=== PATIENT | male | born 1955 | race Caucasian/White ===

== ENCOUNTER 2017-07-25 02:44 | Emergency (ER) | payer OTHER ==
[~2017-07-25] VITALS: Ht 190.5 cm; Wt 92.9 kg
[2017-07-25 02:51] VITALS: Ht 190.5 cm; Wt 92.9 kg
--- NOTE | 2017-07-25 03:55 | ERD ---
ER Documentation Chief Complaint Chief Complaint anxious HPI The patient is a 61-year-old male, presenting to the ER because he felt anxious at the board and care. Denies dizziness, syncope, near syncope, neck pain, chest pain, abdominal pain, vomiting. He is a poor historian, smokes socially, denies drinking or using illicit drug Medical history: Anxiety ROS All systems reviewed and are negative except as per history of present illness. Physical Exam Vitals Vital Signs Date Time Temp Pulse Resp B/P Pulse Ox O2 Delivery O2 Flow Rate FiO2 07/25/17 06:00 58 21 140/73 96 Room Air 07/25/17 04:00 71 20 176/100 97 Room Air 07/25/17 02:51 98.2 58 20 175/79 96 Physical Exam Const: No acute distress. Head: Atraumatic. Eyes: Normal Conjunctiva. ENT: Normal External Ears, Nose and Mouth. Neck: Full range of motion. No meningismus. Resp: Clear to auscultation bilaterally. Cardio: Regular rate and rhythm. Abd: Soft, non distended, normal bowel sounds, non tender. Skin: No petechiae or rashes. Back: No midline or flank tenderness. Ext: No cyanosis, or edema. Neur: Awake and alert. No focal deficit Psych: Anxious. Result Diagram: 07/25/17 0410 07/25/17 0410 Results 24 hrs Laboratory Tests Test 07/25/17 04:10 07/25/17 04:17 White Blood Count 6.910^3/ul Red Blood Count 3.5510^6/ul Hemoglobin 10.4g/dl Hematocrit 32.1% Mean Corpuscular Volume 90.4fl Mean Corpuscular Hemoglobin 29.3pg Mean Corpuscular Hemoglobin Concent 32.4g/dl Red Cell Distribution Width 16.6% Platelet Count 45632^3/UL Mean Platelet Volume 10.3fl Neutrophils % 47.3% Lymphocytes % 33.7% Monocytes % 12.8% Eosinophils % 5.5% Basophils % 0.4% Nucleated Red Blood Cells % 0.0/100WBC Neutrophils # 3.310^3/ul Lymphocytes # 2.310^3/ul Monocytes # 0.910^3/ul Eosinophils # 0.410^3/ul Basophils # 0.010^3/ul Nucleated Red Blood Cells # 0.010^3/ul Prothrombin Time 14.2Sec Prothrombin Time Ratio 1.1 INR International Normalized Ratio 1.09 Activated Partial Thromboplast Time 31.5Sec Sodium Level 145mmol/L Potassium Level 4.3mmol/L Chloride Level 111mmol/L Carbon Dioxide Level 24mmol/L Anion Gap 14 Blood Urea Nitrogen 35mg/dl Creatinine 2.17mg/dl Glucose Level 69mg/dl Calcium Level 9.0mg/dl Bedside Glucose 82mg/dL Procedures/MDM MEDICAL MAKING DECISION: The patient is a 61-year-old male, presenting with acute anxiety, has gotten better in the ER The differential diagnoses considered include but are not limited to anxiety attack, panic attack, decompensated psychiatric illness Departure Diagnosis: Primary Impression: Anxiety Additional Impressions: Anemia Renal insufficiency Condition: Good Comments I discussed the findings with the patient. I advised the patient to follow-up with the primary physician in about 1-2 days for re-eval and refer to Nephrology , sooner if needed and return if any concern. Disclaimer: Inadvertent spelling and grammatical errors are likely due to EHR/ dictation software use and do not reflect on the overall quality of patient care. Also, please note that the electronic time recorded on this note does not necessarily reflect the actual time of the patient encounter. ALEJANDRO CLEANING MD Jul 25, 2017 03:55
[2017-07-25 04:22] LABS: WHITE BLOOD COUNT 6.9 10^3/ul (4.8-10.8)
[2017-07-25 04:23] LABS: BASOPHILS % 0.4 % (0.0-2.0); EOSINOPHILS # 0.4 10^3/ul (0.0-0.5); EOSINOPHILS % 5.5 % (0.0-7.0); HEMATOCRIT 32.1 % (42.0-52.0); HEMOGLOBIN 10.4 g/dl (14.0-18.0); LYMPHOCYTES # 2.3 10^3/ul (0.8-2.9); LYMPHOCYTES % 33.7 % (15.0-51.0); MEAN CORPUSCULAR HEMOGLOBIN 29.3 pg (29.0-33.0); MEAN CORPUSCULAR HGB CONC 32.4 g/dl (32.0-37.0); MEAN CORPUSCULAR VOLUME 90.4 fl (82.0-101.0); MEAN PLATELET VOLUME 10.3 fl (7.4-10.4); MONOCYTE # 0.9 10^3/ul (0.3-0.9); MONOCYTES % 12.8 % (0.0-11.0); NEUTROPHIL # 3.3 10^3/ul (1.6-7.5); NEUTROPHILS % 47.3 % (39.0-77.0); PLATELET COUNT 207 10^3/UL (140-415); RED BLOOD COUNT 3.55 10^6/ul (4.70-6.10); RED CELL DISTRIBUTION WIDTH 16.6 % (11.5-14.5)
[2017-07-25 04:39] LABS: CREATININE 2.17 mg/dl (0.61-1.24); POTASSIUM 4.3 mmol/L (3.5-5.1)
[2017-07-25 04:42] LABS: INR 1.09; PROTIME 14.2 Sec (11.9-14.9); PT RATIO 1.1
[2017-07-25 04:43] LABS: PARTIAL THROMBOPLASTIN TIME 31.5 Sec (25.0-35.0)
[2017-07-25 07:40] VITALS: BP 138/73; PULSE 63; RESP 18; TEMP 98.2
== END 2017-07-25 07:43 | disposition home or self-care (01) ==
LOC: E/R 02:44
DX: F41.9 Anxiety disorder, unspecified (principal); D64.9 Anemia, unspecified; N28.9 Disorder of kidney and ureter, unspecified; R40.2142 Coma scale, eyes open, spontaneous, at arrival to emergency department; R40.2242 Coma scale, best verbal response, confused conversation, at arrival to emergency department; R40.2362 Coma scale, best motor response, obeys commands, at arrival to emergency department; R42 Dizziness and giddiness; R06.02 Shortness of breath
CPT/HCPCS: 36415; 80048; 82962; 85025; 85610; 85730; Z7502; Z7610; 93005

== ENCOUNTER 2017-11-26 23:50 | Inpatient (IN) | END 2018-01-12 18:15 | DRG 871 ==

== ENCOUNTER 2018-09-09 21:12 | Inpatient (IN) | payer OTHER ==
[~2018-09-09] VITALS: Ht 180.3 cm; Wt 93.5 kg
[2018-09-09 21:30] VITALS: PULSE 70
[2018-09-09 21:48] VITALS: BP 160/70; PULSE 71; RESP 19
[2018-09-09 23:00] VITALS: BP 131/63; PULSE 97; RESP 18
[2018-09-09] MEDS ORDERED: ACETAMINOPHEN 325 MG TAB PO PRN (23:00)
[2018-09-09] MEDS ORDERED: ONDANSETRON 4 MG INJ IV PRN (23:00)
[2018-09-09] MEDS ORDERED: ZOLPIDEM 5 MG TAB PO PRN (23:00)
[2018-09-09] MEDS ORDERED: morphine SULFATE/PF (2 MG/2 ML) SYG IV PRN (23:00)
[2018-09-10] VITALS (24 sets, daily range): BP systolic 103–142; BP diastolic 57–77; PULSE 49–81; RESP 18–20
[2018-09-10] MEDS: ALBUTEROL/IPRATROPIUM (NEB) 3 ML AMP HHN SCH ×4 (02:00→19:59)
[2018-09-10] MEDS: PANTOPRAZOLE (EC) 40 MG TAB PO SCH (06:03)
[2018-09-10] MEDS: VITAMIN B COMPLEX/VIT C CAP PO SCH (08:19)
[2018-09-10] MEDS: RISPERIDONE 1 MG TAB PO SCH ×2 (08:19→20:54)
[2018-09-10] MEDS: DOCUSATE SODIUM 100 MG CAP PO SCH ×3 (08:20→20:54)
[2018-09-10] MEDS: CALCIUM ACETATE 667 MG CAP PO SCH ×3 (08:20→20:54)
[2018-09-10] MEDS: HEPARIN 5,000 UNIT/1 ML VIAL SC SCH ×2 (08:42→20:58)
[2018-09-10] MEDS ORDERED: morphine 2 MG INJ IV PRN (11:40)
[2018-09-10] MEDS ORDERED: HEPARIN 1000 UNITS/ML 10 ML INJ CATHETER ONE (14:30)
--- NOTE | 2018-09-10 15:25 | HP ---
CECILIA HANDLEY 09/10/18 1525: Date/Time of Note Date/Time of Note DATE: 09/10/18 TIME: 15:24 Assessment/Plan VTE Prophylaxis Risk score (from [facility])>0 risk: 5 SCD applied (from [facility] [place]): No SCD contraindicated: other Pharmacological prophylaxis: heparin Lines/Catheters IV Catheter Type (from [facility]): Saline Lock Urinary Cath still in place: No Assessment/Plan Hospital Course 1. ESRD on HD. pt had been missing HD session due to absence of transportation 2. Anemia 3. Hx of schizophrenia. 4. Hx of GI bleed 5. Overweight 6. Numerous Decubi and lacerations. 7. Hypertension 8. Hx of fibula fracture Assessment/Plan - continue HD -case management to find or transfer to local HD center - DVT prophylaxis Heparin - GI prophylaxis Protonix. -PT evaluation -transfer to [facility] -start Epogen Result Diagram: 09/10/1831 09/10/18 0631 Results 24hrs Laboratory Tests Test 09/10/18 06:31 09/10/18 09:56 White Blood Count 6.5 # Red Blood Count 2.50 L Hemoglobin 7.8 L Hematocrit 24.0 L Mean Corpuscular Volume 96.0 Mean Corpuscular Hemoglobin 31.2 Mean Corpuscular Hemoglobin Concent 32.5 Red Cell Distribution Width 13.5 Platelet Count 211 Mean Platelet Volume 10.3 Immature Granulocytes % 0.500 H Neutrophils % 46.0 Lymphocytes % 36.0 Monocytes % 13.1 H Eosinophils % 3.6 Basophils % 0.8 Nucleated Red Blood Cells % 0.0 Immature Granulocytes # 0.030 Neutrophils # 3.0 Lymphocytes # 2.3 Monocytes # 0.9 Eosinophils # 0.2 Basophils # 0.1 Nucleated Red Blood Cells # 0.0 Sodium Level 142 Potassium Level 4.8 Chloride Level 112 H Carbon Dioxide Level 21 Anion Gap 9 Blood Urea Nitrogen 66 H Creatinine 5.66 H Est Glomerular Filtrat Rate mL/min 12 L Glucose Level 72 Calcium Level 9.5 Hepatitis B Surface Antigen NEGATIVE Hepatitis B Surface Antibody INDETERMINATE HPI/ROS Admit Date/Time Admit Date/Time Sep 09, 2018 at 21:12 Hx of Present Illness This 62 yo male, was transferred from [facility] on 09/09/2018 per insurance reasons. Lately he had been having missed HD sessions. He has history of ESRD, pneumonia, septicemia, anemia, hx of schizophrenia, CHF, obesity, hypertension, e-coli sepsis. Pt HD place is not close to his custodial. He had been missing HD and got admitted to different hospitals. ROS Constitutional: disoriented PMH/Family/Social Past Medical History Medical History: diabetes, hypertension, renal disease Medications Current Medications Calcium Acetate (Phoslo) 667 mg TID PO Last administered on 09/10/18 12:04; Admin Dose 667 MG; Start 09/10/18 at 09:00 Docusate Sodium (Colace) 100 mg TID PO Last administered on 09/10/18 12:04; Admin Dose 100 MG; Start 09/10/18 at 09:00 Heparin Sodium (Porcine) (Heparin (5000 Units/1ml)) 5,000 unit BID SC Last administered on 09/10/18 08:42; Admin Dose 5,000 UNIT; Start 09/10/18 at 09:00 Risperidone (Risperdal) 2 mg HS PO ; Start 09/10/18 at 21:00 Risperidone (Risperdal) 1 mg DAILY PO Last administered on 09/10/18 08:19; Admin Dose 1 MG; Start 09/10/18 at 09:00 Vitamin B Complex/ Vitamin C (Berocca) 1 cap DAILY PO Last administered on 09/10/18 08:19; Admin Dose 1 CAP; Start 09/10/18 at 09:00 Pantoprazole (Protonix Tab) 40 mg DAILY@06 PO Last administered on 09/10/18 06:03; Admin Dose 40 MG; Start 09/10/18 at 06:00 Acetaminophen (Tylenol Tab) 650 mg Q4H PRN PO ELEVATED TEMPERATURE & pain; Start 09/09/18 at 23:00 Clonidine (Catapres) 0.1 mg Q4H PRN NGT ELEVATED BLOOD PRESSURE; Start 09/09/18 at 23:00 Albuterol/ Ipratropium (Duoneb) 3 ml Q6H RESP THERAPY HHN Last administered on 09/10/18at 07:46; Admin Dose 3 ML; Start 09/10/18 at 02:00 Zolpidem Tartrate (Ambien) 5 mg HS PRN PO INSOMNIA; Start 09/09/18 at 23:00 Lorazepam (Ativan) 1 mg Q6H PRN PO ANXIETY; Start 09/09/18 at 23:00 Ondansetron HCl (Zofran Inj) 4 mg Q6H PRN IV NAUSEA AND/OR VOMITING; Start 09/09/18 at 23:00 Morphine Sulfate (morphine) 1 mg Q4H PRN IV SEVERE PAIN LEVEL 7-10; Start 09/10/18 at 11:40 Coded Allergies: Penicillins (Verified Allergy, Unknown, 09/09/18) fluphenazine (Verified Allergy, Unknown, 12/11/17) haloperidol (Verified Allergy, Unknown, 12/11/17) Past Surgical History Past Surgical Hx: other Social History Alcohol Use: none Smoking Status: Current every day smoker Drug Use: none Exam/Review of Systems Vital Signs Vitals Vital Signs Date Temp Pulse Resp B/P (MAP) Pulse Ox O2 O2 Flow FiO2 Time Delivery Rate 09/10/18 49 13:05 09/10/18 98.3 20 134/66 96 11:29 (88) 09/10/18 21 07:48 09/09/18 Room Air 23:00 Intake and Output 09/09/18 09/09/18 09/10/18 1515:00 23:00 07:00 IntakeIntake Total 100 ml OutputOutput Total 550 ml BalanceBalance -450 ml Exam Exam right chest Permcath Constitutional: alert, oriented (name) Head: normocephalic Eyes: nl conjunctiva ENMT: nl external ears & nose Neck: supple Respiratory: clear to auscultation Cardiovascular: regular rate and rhythm Gastrointestinal: soft MEMO RODRIGUEZ MD 09/10/187: Assessment/Plan Assessment/Plan Assessment/Plan SEEN AND EXAMINED HD NON COMPLINCE PSCY CONSULT Result Diagram: 09/10/18 0631 09/10/18 0631 PMH/Family/Social Past Medical History Coded Allergies: Penicillins (Verified Allergy, Unknown, 09/09/18) fluphenazine (Verified Allergy, Unknown, 12/11/17) haloperidol (Verified Allergy, Unknown, 12/11/17) CECILIA TRUJILLO Sep 10, 2018 15:25 MEMO RODRIGUEZ MD Sep 10, 2018 21:57
[2018-09-10] MEDS ORDERED: EPOETIN 4000 UNITS/1 ML INJ (ESRD) SC SCH (17:00)
[2018-09-11] MEDS: ALBUTEROL/IPRATROPIUM (NEB) 3 ML AMP HHN SCH ×5 (01:25→20:00)
[2018-09-11 01:30] VITALS: BP 130/61; PULSE 76; RESP 18
[2018-09-11] MEDS: PANTOPRAZOLE (EC) 40 MG TAB PO SCH (05:17)
[2018-09-11 07:49] VITALS: BP 168/78; PULSE 69; RESP 18
[2018-09-11] MEDS: DOCUSATE SODIUM 100 MG CAP PO SCH ×3 (09:27→22:42)
[2018-09-11] MEDS: VITAMIN B COMPLEX/VIT C CAP PO SCH (09:27)
[2018-09-11] MEDS: CALCIUM ACETATE 667 MG CAP PO SCH ×3 (09:27→22:42)
[2018-09-11] MEDS: HEPARIN 5,000 UNIT/1 ML VIAL SC SCH ×2 (09:29→22:42)
[2018-09-11] MEDS: RISPERIDONE 1 MG TAB PO SCH ×2 (11:20→22:42)
--- NOTE | 2018-09-11 12:21 | PN ---
Date/Time of Note Date/Time of Note DATE: 09/11/18 TIME: 12:20 Assessment/Plan VTE Prophylaxis Risk score (from [facility])>0 risk: 5 SCD applied (from [facility]): Yes Pharmacological prophylaxis: heparin Lines/Catheters IV Catheter Type (from [facility]rs[facility]): Perma-Cath Urinary Cath still in place: No Assessment/Plan Hospital Course 1. ESRD on HD. pt had been missing HD session due to absence of transportation 2. Anemia 3. Hx of schizophrenia. 4. Hx of GI bleed 5. Overweight 6. Numerous Decubi and lacerations. 7. Hypertension 8. Hx of fibula fracture Assessment/Plan - continue HD -psychiatric care -case management to find or transfer to local HD center - DVT prophylaxis Heparin - GI prophylaxis Protonix. -PT evaluation - medsurg -c/w Epogen Result Diagram: 09/11/183 09/11/18442 Results 24hrs Laboratory Tests Test 09/11/18 04:43 White Blood Count 6.9 Red Blood Count 2.81 L Hemoglobin 8.8 L Hematocrit 26.8 L Mean Corpuscular Volume 95.4 Mean Corpuscular Hemoglobin 31.3 Mean Corpuscular Hemoglobin Concent 32.8 Red Cell Distribution Width 13.5 Platelet Count 233 Mean Platelet Volume 10.3 Immature Granulocytes % 0.300 Neutrophils % 47.8 Lymphocytes % 35.4 Monocytes % 12.8 H Eosinophils % 3.0 Basophils % 0.7 Nucleated Red Blood Cells % 0.0 Immature Granulocytes # 0.020 Neutrophils # 3.3 Lymphocytes # 2.4 Monocytes # 0.9 Eosinophils # 0.2 Basophils # 0.1 Nucleated Red Blood Cells # 0.0 Sodium Level 142 Potassium Level 4.4 Chloride Level 109 Carbon Dioxide Level 27 Anion Gap 6 Blood Urea Nitrogen 42 #H Creatinine 4.53 #H Est Glomerular Filtrat Rate mL/min 16 L Glucose Level 70 Calcium Level 9.0 Subjective 24 Hr Interval Summary Free Text/Dictation delusional Exam/Review of Systems Exam Vitals Vital Signs Date Temp Pulse Resp B/P (MAP) Pulse Ox O2 O2 Flow FiO2 Time Delivery Rate 09/11/18 74 19 96 21 09:02 09/11/18 98.6 168/78 Room Air 07:49 (108) Intake and Output 09/10/18 09/10/18 09/11/18 1414:59 22:59 06:59 IntakeIntake Total 400 ml 1080 ml OutputOutput Total 200 ml 3200 ml 500 ml BalanceBalance -200 ml -2800 ml 580 ml Exam right chest Permcath Constitutional: alert (name) Head: normocephalic Eyes: nl conjunctiva Neck: supple Respiratory: diminished breath sounds Cardiovascular: regular rate and rhythm Results Results 24hrs Laboratory Tests Test 09/11/18 04:43 White Blood Count 6.9 Red Blood Count 2.81 L Hemoglobin 8.8 L Hematocrit 26.8 L Mean Corpuscular Volume 95.4 Mean Corpuscular Hemoglobin 31.3 Mean Corpuscular Hemoglobin Concent 32.8 Red Cell Distribution Width 13.5 Platelet Count 233 Mean Platelet Volume 10.3 Immature Granulocytes % 0.300 Neutrophils % 47.8 Lymphocytes % 35.4 Monocytes % 12.8 H Eosinophils % 3.0 Basophils % 0.7 Nucleated Red Blood Cells % 0.0 Immature Granulocytes # 0.020 Neutrophils # 3.3 Lymphocytes # 2.4 Monocytes # 0.9 Eosinophils # 0.2 Basophils # 0.1 Nucleated Red Blood Cells # 0.0 Sodium Level 142 Potassium Level 4.4 Chloride Level 109 Carbon Dioxide Level 27 Anion Gap 6 Blood Urea Nitrogen 42 #H Creatinine 4.53 #H Est Glomerular Filtrat Rate mL/min 16 L Glucose Level 70 Calcium Level 9.0 Medications Medication Current Medications Calcium Acetate (Phoslo) 667 mg TID PO Last administered on 09/11/18 09:27; Admin Dose 667 MG; Start 09/10/18 at 09:00 Docusate Sodium (Colace) 100 mg TID PO Last administered on 09/11/18 09:27; Admin Dose 100 MG; Start 09/10/18 at 09:00 Heparin Sodium (Porcine) (Heparin (5000 Units/1ml)) 5,000 unit BID SC Last administered on 09/11/18 09:29; Admin Dose 5,000 UNIT; Start 09/10/18 at 09:00 Risperidone (Risperdal) 2 mg HS PO Last administered on 09/10/18 20:54; Admin Dose 2 MG; Start 09/10/18 at 21:00 Risperidone (Risperdal) 1 mg DAILY PO Last administered on 09/11/18 11:20; Admin Dose 1 MG; Start 09/10/18 at 09:00 Vitamin B Complex/ Vitamin C (Berocca) 1 cap DAILY PO Last administered on 09/11/18at 09:27; Admin Dose 1 CAP; Start 09/10/18 at 09:00 Pantoprazole (Protonix Tab) 40 mg DAILY@06 PO Last administered on 09/11/18at 05:17; Admin Dose 40 MG; Start 09/10/18 at 06:00 Acetaminophen (Tylenol Tab) 650 mg Q4H PRN PO ELEVATED TEMPERATURE & pain; Start 09/09/18 at 23:00 Clonidine (Catapres) 0.1 mg Q4H PRN NGT ELEVATED BLOOD PRESSURE; Start 09/09/18 at 23:00 Albuterol/ Ipratropium (Duoneb) 3 ml Q6H RESP THERAPY HHN Last administered on 09/10/18at 19:59; Admin Dose 3 ML; Start 09/10/18 at 02:00 Zolpidem Tartrate (Ambien) 5 mg HS PRN PO INSOMNIA; Start 09/09/18 at 23:00 Lorazepam (Ativan) 1 mg Q6H PRN PO ANXIETY; Start 09/09/18 at 23:00 Ondansetron HCl (Zofran Inj) 4 mg Q6H PRN IV NAUSEA AND/OR VOMITING; Start 09/09/18 at 23:00 Morphine Sulfate (morphine) 1 mg Q4H PRN IV SEVERE PAIN LEVEL 7-10; Start 09/10/18 at 11:40 Epoetin Jose Guadalupe (Epogen (Esrd)) 4,000 units MoWeFr@17 SC ; Start 09/10/18 at 17:00 CECILIA TRUJILLO Sep 11, 2018 12:21
--- NOTE | 2018-09-11 12:56 | CONS ---
Date/Time of Note Date/Time of Note DATE: 09/11/18 TIME: 12:39 Consult Date/Type/Reason Admit Date Nov 26, 2017 at 23:50 Type of Consult Psych Ordering Provider: MEMO RODRIGUEZ MD Subjective Patient is a 62 yo male, currently in 2NE with underlying medical issues of ESRD, CHF, obesity, hypertension, and e-coli sepsis. On a face to face evaluation, patient is alert, oriented with forgetfulness, Explained the implications of refusing treatment, but he is adamant and states dialysis is not for him. GEMMA LICONA NP Sep 11, 2018 12:56
--- NOTE | 2018-09-11 13:01 | CONS ---
Date/Time of Note Date/Time of Note DATE: 09/11/18 TIME: 12:59 Consult Date/Type/Reason Admit Date Sep 09, 2018 at 21:12 Type of Consult Psych Subjective Patient is a 62-year-old -[place] male with an Medical issues of end- stage renal disease hypertension. On a [id number] evaluation, patient is talking to himself responding to internal stimuli he has poor impulse control poor coping skills and poor contact with reality. Explained risk and benefits of his current medications and he verbalized understanding. Objective Patient Appearance: Disheveled Voice Loudness: Moderately Soft/Quiet Mood and Affect Description: Anxious Mood or Affect: Cooperative Speech Pattern: Clear Thought Process: Tangential Hallucination Type: Auditory, Command Delusion Description: Present Assessment/Plan Recommendations Continue current medications GEMMA LICONA NP Sep 11, 2018 13:01
[2018-09-11 13:53] VITALS: BP 141/67; PULSE 73; RESP 18
[2018-09-11] MEDS ORDERED: LORAZEPAM 2 MG INJ IV ONE (17:00)
[2018-09-11] MEDS ORDERED: CHLORPROMAZINE 10 MG TAB PO ONE (17:30)
[2018-09-11] MEDS: LORAZEPAM 1 MG TAB PO PRN (17:58)
[2018-09-12 01:30] VITALS: BP 123/65; PULSE 85; RESP 17
[2018-09-12] MEDS: ALBUTEROL/IPRATROPIUM (NEB) 3 ML AMP HHN SCH ×4 (02:00→19:15)
[2018-09-12] MEDS: PANTOPRAZOLE (EC) 40 MG TAB PO SCH (07:14)
[2018-09-12 07:17] VITALS: BP 111/63; PULSE 78; RESP 17
--- NOTE | 2018-09-12 08:44 | PN ---
Date/Time of Note Date/Time of Note DATE: 09/12/18 TIME: 08:42 Assessment/Plan VTE Prophylaxis Risk score (from Nsg)>0 risk: 2 SCD applied (from Nsg): Yes Pharmacological prophylaxis: heparin Lines/Catheters IV Catheter Type (from Nrsg): PERMA CATHETER Urinary Cath still in place: No Assessment/Plan Hospital Course 1. ESRD on HD. pt had been missing HD session due to absence of transportation 2. Anemia 3. Hx of schizophrenia. 4. Hx of GI bleed 5. Overweight 6. Numerous Decubi and lacerations. 7. Hypertension 8. Hx of fibula fracture Assessment/Plan - continue HD -psychiatric care, was seen BY outpatient psychiatrist, no changes in meds. -case management to find or transfer to local HD center, pending - DVT prophylaxis Heparin - GI prophylaxis Protonix. -PT evaluation - medsurg -c/w Epogen, increase to 6000 after HD Result Diagram: 09/12/18 0642 09/12/18 0642 Results 24hrs Laboratory Tests Test 09/12/18 06:42 White Blood Count 5.4 # Red Blood Count 2.41 L Hemoglobin 7.7 L Hematocrit 23.4 L Mean Corpuscular Volume 97.1 Mean Corpuscular Hemoglobin 32.0 Mean Corpuscular Hemoglobin Concent 32.9 Red Cell Distribution Width 13.9 Platelet Count 197 Mean Platelet Volume 10.4 Immature Granulocytes % 0.400 Neutrophils % 47.3 Lymphocytes % 34.0 Monocytes % 13.5 H Eosinophils % 4.1 Basophils % 0.7 Nucleated Red Blood Cells % 0.0 Immature Granulocytes # 0.020 Neutrophils # 2.5 Lymphocytes # 1.8 Monocytes # 0.7 Eosinophils # 0.2 Basophils # 0.0 Nucleated Red Blood Cells # 0.0 Sodium Level 140 Potassium Level 4.6 Chloride Level 109 Carbon Dioxide Level 26 Anion Gap 5 Blood Urea Nitrogen 56 H Creatinine 5.71 H Est Glomerular Filtrat Rate mL/min 12 L Glucose Level 78 Calcium Level 9.1 Subjective 24 Hr Interval Summary Constitutional: no complaints Exam/Review of Systems Exam Vitals Vital Signs Date Temp Pulse Resp B/P (MAP) Pulse Ox O2 O2 Flow FiO2 Time Delivery Rate 09/12/18 98.2 78 17 111/63 93 07:17 (79) 09/12/18 Room Air 01:30 09/11/18 21 21:30 Intake and Output 09/11/18 09/11/18 09/12/18 1515:00 23:00 07:00 IntakeIntake Total 960 ml 600 ml 240 ml OutputOutput Total 300 ml 250 ml 1450 ml BalanceBalance 660 ml 350 ml -1210 ml Exam right chest Portacath Constitutional: alert, oriented (x2) Respiratory: clear to auscultation Cardiovascular: regular rate and rhythm Gastrointestinal: soft Results Results 24hrs Laboratory Tests Test 09/12/18 06:42 White Blood Count 5.4 # Red Blood Count 2.41 L Hemoglobin 7.7 L Hematocrit 23.4 L Mean Corpuscular Volume 97.1 Mean Corpuscular Hemoglobin 32.0 Mean Corpuscular Hemoglobin Concent 32.9 Red Cell Distribution Width 13.9 Platelet Count 197 Mean Platelet Volume 10.4 Immature Granulocytes % 0.400 Neutrophils % 47.3 Lymphocytes % 34.0 Monocytes % 13.5 H Eosinophils % 4.1 Basophils % 0.7 Nucleated Red Blood Cells % 0.0 Immature Granulocytes # 0.020 Neutrophils # 2.5 Lymphocytes # 1.8 Monocytes # 0.7 Eosinophils # 0.2 Basophils # 0.0 Nucleated Red Blood Cells # 0.0 Sodium Level 140 Potassium Level 4.6 Chloride Level 109 Carbon Dioxide Level 26 Anion Gap 5 Blood Urea Nitrogen 56 H Creatinine 5.71 H Est Glomerular Filtrat Rate mL/min 12 L Glucose Level 78 Calcium Level 9.1 Medications Medication Current Medications Calcium Acetate (Phoslo) 667 mg TID PO Last administered on 09/11/18 12:54; Admin Dose 667 MG; Start 09/10/18 at 09:00 Docusate Sodium (Colace) 100 mg TID PO Last administered on 09/11/18at 12:53; Admin Dose 100 MG; Start 09/10/18 at 09:00 Heparin Sodium (Porcine) (Heparin (5000 Units/1ml)) 5,000 unit BID SC Last administered on 09/11/18 09:29; Admin Dose 5,000 UNIT; Start 09/10/18 at 09:00 Risperidone (Risperdal) 2 mg HS PO Last administered on 09/10/18at 20:54; Admin Dose 2 MG; Start 09/10/18 at 21:00 Risperidone (Risperdal) 1 mg DAILY PO Last administered on 2/9/19at 11:20; Admin Dose 1 MG; Start 09/10/18 at 09:00 Vitamin B Complex/ Vitamin C (Berocca) 1 cap DAILY PO Last administered on 09/11/18at 09:27; Admin Dose 1 CAP; Start 09/10/18 at 09:00 Pantoprazole (Protonix Tab) 40 mg DAILY@06 PO Last administered on 09/12/18at 07:14; Admin Dose 40 MG; Start 09/10/18 at 06:00 Acetaminophen (Tylenol Tab) 650 mg Q4H PRN PO ELEVATED TEMPERATURE & pain; Start 09/09/18 at 23:00 Clonidine (Catapres) 0.1 mg Q4H PRN NGT ELEVATED BLOOD PRESSURE; Start 09/09/18 at 23:00 Albuterol/ Ipratropium (Duoneb) 3 ml Q6H RESP THERAPY HHN Last administered on 09/10/18at 19:59; Admin Dose 3 ML; Start 09/10/18 at 02:00 Zolpidem Tartrate (Ambien) 5 mg HS PRN PO INSOMNIA; Start 09/09/18 at 23:00 Lorazepam (Ativan) 1 mg Q6H PRN PO ANXIETY Last administered on 09/11/18at 17:58; Admin Dose 1 MG; Start 09/09/18 at 23:00 Ondansetron HCl (Zofran Inj) 4 mg Q6H PRN IV NAUSEA AND/OR VOMITING; Start 09/09/18 at 23:00 Morphine Sulfate (morphine) 1 mg Q4H PRN IV SEVERE PAIN LEVEL 7-10; Start 09/10/18 at 11:40 Epoetin Jose Guadalupe (Epogen (Esrd)) 4,000 units MoWeFr@17 SC ; Start 09/10/18 at 17:00 CECILIA TRUJILLO Sep 12, 2018 08:44
[2018-09-12] MEDS: HEPARIN 5,000 UNIT/1 ML VIAL SC SCH ×2 (09:51→20:28)
[2018-09-12] MEDS: RISPERIDONE 1 MG TAB PO SCH ×2 (09:51→20:27)
[2018-09-12] MEDS: CALCIUM ACETATE 667 MG CAP PO SCH ×3 (09:51→20:27)
[2018-09-12] MEDS: DOCUSATE SODIUM 100 MG CAP PO SCH ×3 (09:52→20:27)
[2018-09-12] MEDS: VITAMIN B COMPLEX/VIT C CAP PO SCH (09:52)
[2018-09-12] MEDS ORDERED: HEPARIN 1000 UNITS/ML 10 ML INJ CATHETER SCH (14:30)
[2018-09-12 15:37] VITALS: BP 106/58; PULSE 84; RESP 18
[2018-09-12 19:20] VITALS: BP 119/56; PULSE 67; RESP 18
[2018-09-13] VITALS (18 sets, daily range): BP systolic 93–138; BP diastolic 55–95; PULSE 67–84; RESP 18–20
[2018-09-13] MEDS: ALBUTEROL/IPRATROPIUM (NEB) 3 ML AMP HHN SCH ×4 (01:24→20:16)
[2018-09-13] MEDS: PANTOPRAZOLE (EC) 40 MG TAB PO SCH (05:33)
[2018-09-13] MEDS: CALCIUM ACETATE 667 MG CAP PO SCH ×3 (08:44→20:53)
[2018-09-13] MEDS: VITAMIN B COMPLEX/VIT C CAP PO SCH (08:44)
[2018-09-13] MEDS: DOCUSATE SODIUM 100 MG CAP PO SCH ×3 (08:44→20:53)
[2018-09-13] MEDS: HEPARIN 5,000 UNIT/1 ML VIAL SC SCH ×3 (08:47→20:54)
[2018-09-13] MEDS: RISPERIDONE 1 MG TAB PO SCH ×2 (10:24→21:55)
[2018-09-13] MEDS: LORAZEPAM 1 MG TAB PO PRN (12:53)
--- NOTE | 2018-09-13 16:24 | PN ---
Date/Time of Note Date/Time of Note DATE: 09/13/18 TIME: 16:24 Assessment/Plan VTE Prophylaxis Risk score (from Ns)>0 risk: 5 SCD applied (from Ns): No SCD contraindicated: low risk/ambulating Pharmacological prophylaxis: NA/contraindicated Pharm contraindication: low risk/ambulating Lines/Catheters IV Catheter Type (from Nrs): Central Line Central line still needed: No Urinary Cath still in place: No Assessment/Plan Hospital Course 1. ESRD on HD. pt had been missing HD session due to absence of transportation 2. Anemia 3. Hx of schizophrenia. 4. Hx of GI bleed 5. Overweight 6. Numerous Decubi and lacerations. 7. Hypertension 8. Hx of fibula fracture Assessment/Plan - continue HD -psychiatric care, was seen BY psychiatric lpn, -case management to find or transfer to local HD center, pending, spoke to Thursday telephonic case manager she is working on it - DVT prophylaxis Heparin - GI prophylaxis Protonix. -PT evaluation - medsurg -c/w Epogen, increase to 6000 after HD Result Diagram: 09/13/18 0551 09/13/18 0551 Results 24hrs Laboratory Tests Test 09/13/18 05:51 White Blood Count 8.2 # Red Blood Count 2.50 L Hemoglobin 8.0 L Hematocrit 24.7 L Mean Corpuscular Volume 98.8 Mean Corpuscular Hemoglobin 32.0 Mean Corpuscular Hemoglobin Concent 32.4 Red Cell Distribution Width 14.2 Platelet Count 212 Mean Platelet Volume 10.2 Immature Granulocytes % 0.500 H Neutrophils % 53.2 Lymphocytes % 31.4 Monocytes % 11.6 H Eosinophils % 2.7 Basophils % 0.6 Nucleated Red Blood Cells % 0.0 Immature Granulocytes # 0.040 H Neutrophils # 4.4 Lymphocytes # 2.6 Monocytes # 1.0 H Eosinophils # 0.2 Basophils # 0.1 Nucleated Red Blood Cells # 0.0 Sodium Level 143 Potassium Level 4.1 Chloride Level 111 H Carbon Dioxide Level 22 Anion Gap 10 # Blood Urea Nitrogen 65 H Creatinine 6.36 H Est Glomerular Filtrat Rate mL/min 11 L Glucose Level 69 L Calcium Level 9.2 Vitamin D 1,25-Dihydroxy 32.7 Subjective 24 Hr Interval Summary Free Text/Dictation Patient is a bad mood. he threw me out of the room he was yelling at the nurses Dialysis in a.m. Exam/Review of Systems Exam Vitals Vital Signs Date Temp Pulse Resp B/P (MAP) Pulse Ox O2 O2 Flow FiO2 Time Delivery Rate 09/13/18 98.1 84 18 93/61 (72) 93 14:00 09/13/18 2.0 13:18 09/13/18 Nasal 10:09 Cannula 09/13/18 21 01:24 Intake and Output 09/12/18 09/12/18 09/13/18 1515:00 23:00 07:00 IntakeIntake Total 440 ml 480 ml 360 ml OutputOutput Total 350 ml 300 ml 500 ml BalanceBalance 90 ml 180 ml -140 ml Exam Refused exam. Results Results 24hrs Laboratory Tests Test 09/13/18 05:51 White Blood Count 8.2 # Red Blood Count 2.50 L Hemoglobin 8.0 L Hematocrit 24.7 L Mean Corpuscular Volume 98.8 Mean Corpuscular Hemoglobin 32.0 Mean Corpuscular Hemoglobin Concent 32.4 Red Cell Distribution Width 14.2 Platelet Count 212 Mean Platelet Volume 10.2 Immature Granulocytes % 0.500 H Neutrophils % 53.2 Lymphocytes % 31.4 Monocytes % 11.6 H Eosinophils % 2.7 Basophils % 0.6 Nucleated Red Blood Cells % 0.0 Immature Granulocytes # 0.040 H Neutrophils # 4.4 Lymphocytes # 2.6 Monocytes # 1.0 H Eosinophils # 0.2 Basophils # 0.1 Nucleated Red Blood Cells # 0.0 Sodium Level 143 Potassium Level 4.1 Chloride Level 111 H Carbon Dioxide Level 22 Anion Gap 10 # Blood Urea Nitrogen 65 H Creatinine 6.36 H Est Glomerular Filtrat Rate mL/min 11 L Glucose Level 69 L Calcium Level 9.2 Vitamin D 1,25-Dihydroxy 32.7 Medications Medication Current Medications Calcium Acetate (Phoslo) 667 mg TID PO Last administered on 09/13/18at 12:53; Admin Dose 667 MG; Start 09/10/18 at 09:00 Docusate Sodium (Colace) 100 mg TID PO Last administered on 09/13/18at 12:53; Admin Dose 100 MG; Start 09/10/18 at 09:00 Heparin Sodium (Porcine) (Heparin (5000 Units/1ml)) 5,000 unit BID SC Last administered on 09/12/18at 20:28; Admin Dose 5,000 UNIT; Start 09/10/18 at 09:00 Risperidone (Risperdal) 2 mg HS PO Last administered on 09/12/18 20:27; Admin Dose 2 MG; Start 09/10/18 at 21:00 Risperidone (Risperdal) 1 mg DAILY PO Last administered on 09/13/18 10:24; Admin Dose 1 MG; Start 09/10/18 at 09:00 Vitamin B Complex/ Vitamin C (Berocca) 1 cap DAILY PO Last administered on 09/13/18at 08:44; Admin Dose 1 CAP; Start 09/10/18 at 09:00 Pantoprazole (Protonix Tab) 40 mg DAILY@06 PO Last administered on 09/13/18 05:33; Admin Dose 40 MG; Start 09/10/18 at 06:00 Acetaminophen (Tylenol Tab) 650 mg Q4H PRN PO ELEVATED TEMPERATURE & pain; Start 09/09/18 at 23:00 Clonidine (Catapres) 0.1 mg Q4H PRN NGT ELEVATED BLOOD PRESSURE; Start 09/09/18 at 23:00 Albuterol/ Ipratropium (Duoneb) 3 ml Q6H RESP THERAPY HHN Last administered on 09/13/18 01:24; Admin Dose 3 ML; Start 09/10/18 at 02:00 Zolpidem Tartrate (Ambien) 5 mg HS PRN PO INSOMNIA; Start 09/09/18 at 23:00 Lorazepam (Ativan) 1 mg Q6H PRN PO ANXIETY Last administered on 09/13/18at 12:53; Admin Dose 1 MG; Start 09/09/18 at 23:00 Ondansetron HCl (Zofran Inj) 4 mg Q6H PRN IV NAUSEA AND/OR VOMITING; Start 09/09/18 at 23:00 Morphine Sulfate (morphine) 1 mg Q4H PRN IV SEVERE PAIN LEVEL 7-10; Start 09/10/18 at 11:40 Epoetin Jose Guadalupe (Epogen (Esrd)) 6,000 units MoWeFr@17 SC ; Start 09/13/18 at 17:00 Heparin Sodium (Porcine) (Heparin (1000 Units/ml)) 4,000 unit AFTER DIALYSIS CATHETER Last administered on 09/13/18at 12:32; Admin Dose 4,000 UNIT; Start 09/12/18 at 14:30 MEMO RODRIGUEZ MD Sep 13, 2018 16:24
[2018-09-13] MEDS: EPOETIN 3000 UNITS/1 ML INJ (ESRD) SC SCH (17:00)
[2018-09-13] MEDS ORDERED: LORAZEPAM 2 MG INJ IV PRN (17:00)
[2018-09-13] MEDS ORDERED: morphine LIQ (10 MG/5 ML) CUP PO PRN (23:00)
[2018-09-14] MEDS: ALBUTEROL/IPRATROPIUM (NEB) 3 ML AMP HHN SCH ×4 (01:38→20:00)
[2018-09-14 02:19] VITALS: BP 116/65; PULSE 75; RESP 18
[2018-09-14] MEDS: PANTOPRAZOLE (EC) 40 MG TAB PO SCH (05:56)
[2018-09-14 08:00] VITALS: BP 110/57; PULSE 64; RESP 18
[2018-09-14] MEDS: DOCUSATE SODIUM 100 MG CAP PO SCH ×3 (08:56→20:33)
[2018-09-14] MEDS: RISPERIDONE 1 MG TAB PO SCH ×2 (08:56→20:32)
[2018-09-14] MEDS: CALCIUM ACETATE 667 MG CAP PO SCH ×3 (08:56→20:32)
[2018-09-14] MEDS: HEPARIN 5,000 UNIT/1 ML VIAL SC SCH ×2 (08:58→20:38)
[2018-09-14] MEDS: VITAMIN B COMPLEX/VIT C CAP PO SCH (11:05)
[2018-09-14 14:00] VITALS: BP 110/63; PULSE 74; RESP 18
--- NOTE | 2018-09-14 17:25 | PN ---
Date/Time of Note Date/Time of Note DATE: 09/14/18 TIME: 17:25 Assessment/Plan VTE Prophylaxis Risk score (from Nsg)>0 risk: 5 SCD applied (from Ns): No SCD contraindicated: low risk/ambulating Pharmacological prophylaxis: NA/contraindicated Pharm contraindication: low risk/ambulating Lines/Catheters IV Catheter Type (from Nrs): Central Line Central line still needed: No Urinary Cath still in place: No Assessment/Plan Hospital Course 1. ESRD on HD. pt had been missing HD session due to absence of transportation 2. Anemia 3. Hx of schizophrenia. 4. Hx of GI bleed 5. Overweight 6. Numerous Decubi and lacerations. 7. Hypertension 8. Hx of fibula fracture Assessment/Plan - continue HD ,next HD tmw -psychiatric care, was seen [facility] psychiatrist, will revise meds -case management to find or transfer to local HD center, pending, spoke to Thursday casework supervisor she is working on it - DVT prophylaxis Heparin - GI prophylaxis Protonix. -c/w Epogen, increase to 6000 after HD Result Diagram: 09/13/18 0551 09/13/18 0551 Results 24hrs Laboratory Tests Test 09/14/18 12:29 Hepatitis B Surface Antigen NEGATIVE Hepatitis B Core Total Antibody NEGATIVE Hepatitis C Antibody NEGATIVE Subjective 24 Hr Interval Summary Free Text/Dictation calmer today Exam/Review of Systems Exam Vitals Vital Signs Date Temp Pulse Resp B/P (MAP) Pulse Ox O2 O2 Flow FiO2 Time Delivery Rate 09/14/18 2.0 16:37 09/14/18 97.9 74 18 110/63 93 14:00 (79) 09/14/18 Nasal 09:00 Cannula 09/13/18 21 01:24 Intake and Output 09/13/18 09/13/18 09/14/18 1515:00 23:00 07:00 IntakeIntake Total 240 ml 900 ml 120 ml OutputOutput Total 4200 ml 500 ml BalanceBalance -3960 ml 900 ml -380 ml Exam refused exam Results Results 24hrs Laboratory Tests Test 09/14/18 12:29 Hepatitis B Surface Antigen NEGATIVE Hepatitis B Core Total Antibody NEGATIVE Hepatitis C Antibody NEGATIVE Medications Medication Current Medications Calcium Acetate (Phoslo) 667 mg TID PO Last administered on 09/14/18at 12:11; Admin Dose 667 MG; Start 09/10/18 at 09:00 Docusate Sodium (Colace) 100 mg TID PO Last administered on 09/14/18 12:11; Admin Dose 100 MG; Start 09/10/18 at 09:00 Heparin Sodium (Porcine) (Heparin (5000 Units/1ml)) 5,000 unit BID SC Last administered on 09/12/18 20:28; Admin Dose 5,000 UNIT; Start 09/10/18 at 09:00 Risperidone (Risperdal) 2 mg HS PO Last administered on 09/13/18 21:55; Admin Dose 2 MG; Start 09/10/18 at 21:00 Risperidone (Risperdal) 1 mg DAILY PO Last administered on 09/14/18 08:56; Admin Dose 1 MG; Start 09/10/18 at 09:00 Vitamin B Complex/ Vitamin C (Berocca) 1 cap DAILY PO Last administered on 09/14/18 11:05; Admin Dose 1 CAP; Start 09/10/18 at 09:00 Pantoprazole (Protonix Tab) 40 mg DAILY@06 PO Last administered on 09/14/18 05 :56; Admin Dose 40 MG; Start 09/10/18 at 06:00 Acetaminophen (Tylenol Tab) 650 mg Q4H PRN PO ELEVATED TEMPERATURE & pain; Start 09/09/18 at 23:00 Clonidine (Catapres) 0.1 mg Q4H PRN NGT ELEVATED BLOOD PRESSURE; Start 09/09/18 at 23:00 Albuterol/ Ipratropium (Duoneb) 3 ml Q6H RESP THERAPY HHN Last administered on 09/14/18 01:38; Admin Dose 3 ML; Start 09/10/18 at 02:00 Zolpidem Tartrate (Ambien) 5 mg HS PRN PO INSOMNIA; Start 09/09/18 at 23:00 Lorazepam (Ativan) 1 mg Q6H PRN PO ANXIETY Last administered on 09/13/18 12:53; Admin Dose 1 MG; Start 09/09/18 at 23:00 Ondansetron HCl (Zofran Inj) 4 mg Q6H PRN IV NAUSEA AND/OR VOMITING; Start 09/09/18 at 23:00 Epoetin Jose Guadalupe (Epogen (Esrd)) 6,000 units MoWeFr@17 SC ; Start 09/13/18 at 17:00 Heparin Sodium (Porcine) (Heparin (1000 Units/ml)) 4,000 unit AFTER DIALYSIS CATHETER Last administered on 09/13/18at 12:32; Admin Dose 4,000 UNIT; Start at 14:30 Lorazepam (Ativan) 1 mg Q8H PRN IV ANXIETY; Start 09/13/18 at 17:00 Morphine Sulfate (morphine) 3 mg Q4H PRN PO SEVERE PAIN LEVEL 7-10; Start 09/13/18 at 23:00 MEMO RODRIGUEZ MD Sep 14, 2018 17:25
[2018-09-14] MEDS ORDERED: HEPARIN 1000 UNITS/ML 10 ML INJ CATHETER SCH (18:00)
[2018-09-14 19:29] VITALS: BP 112/65; PULSE 72; RESP 18
[2018-09-14] MEDS: DIVALPROEX SPRINKLE 125 MG CAP PO SCH (20:33)
[2018-09-15] VITALS (19 sets, daily range): BP systolic 101–142; BP diastolic 52–99; PULSE 16–88; RESP 16–17
[2018-09-15] MEDS: ALBUTEROL/IPRATROPIUM (NEB) 3 ML AMP HHN SCH ×4 (02:00→20:00)
[2018-09-15] MEDS: PANTOPRAZOLE (EC) 40 MG TAB PO SCH (05:54)
[2018-09-15] MEDS: CALCIUM ACETATE 667 MG CAP PO SCH ×3 (08:39→22:33)
[2018-09-15] MEDS: VITAMIN B COMPLEX/VIT C CAP PO SCH (08:39)
[2018-09-15] MEDS: DIVALPROEX SPRINKLE 125 MG CAP PO SCH ×2 (08:39→22:34)
[2018-09-15] MEDS: DOCUSATE SODIUM 100 MG CAP PO SCH ×3 (08:39→21:00)
[2018-09-15] MEDS: RISPERIDONE 1 MG TAB PO SCH ×2 (08:39→22:33)
[2018-09-15] MEDS: HEPARIN 5,000 UNIT/1 ML VIAL SC SCH ×2 (08:42→21:00)
--- NOTE | 2018-09-15 16:50 | PN ---
Date/Time of Note Date/Time of Note DATE: 09/15/18 TIME: 16:48 Assessment/Plan VTE Prophylaxis Risk score (from Ns)>0 risk: 5 SCD applied (from Ns): No SCD contraindicated: low risk/ambulating Pharmacological prophylaxis: NA/contraindicated Pharm contraindication: low risk/ambulating Lines/Catheters [facility] Peripheral IV Urinary Cath still in place: No Assessment/Plan Hospital Course 1. ESRD on HD. pt had been missing HD session due to absence of transportation 2. Anemia 3. Hx of schizophrenia. 4. Hx of GI bleed 5. Overweight 6. Numerous Decubi and lacerations. 7. Hypertension 8. Hx of fibula fracture Assessment/Plan - continue HD ,next HD today -psychiatric care, was seen BY staff psychiatrist, will revise meds, added Depakote and Risperdal adjusted -case management arranging for hemodialysis near patient [place] [facility] - DVT prophylaxis Heparin - GI prophylaxis Protonix. -c/w Epogen, increase to 6000 after HD Result Diagram: 09/13/18 0551 09/13/18 0551 Subjective 24 Hr Interval Summary Free Text/Dictation Is constantly saying that he wants to go back to the [place] [facility] Depakote addedby psych yesterday Exam/Review of Systems Exam Vitals Vital Signs Date Temp Pulse Resp B/P (MAP) Pulse Ox O2 O2 Flow FiO2 Time Delivery Rate 09/15/18 97.3 71 16 101/52 97 Room Air 13:54 (68) 09/15/18 2.0 09:00 09/13/18 21 01:24 Intake and Output 09/14/18 09/14/18 09/15/18 1515:00 23:00 07:00 IntakeIntake Total 1120 ml 480 ml OutputOutput Total 300 ml 200 ml 350 ml BalanceBalance 820 ml 280 ml -350 ml Exam Awake alert oriented Permacath in place Medications Medication Current Medications Calcium Acetate (Phoslo) 667 mg TID PO Last administered on 09/15/18at 12:37; Admin Dose 667 MG; Start 09/10/18 at 09:00 Docusate Sodium (Colace) 100 mg TID PO Last administered on 09/15/18at 12:37; Admin Dose 100 MG; Start 09/10/18 at 09:00 Heparin Sodium (Porcine) (Heparin (5000 Units/1ml)) 5,000 unit BID SC Last administered on 09/14/18 20:38; Admin Dose 5,000 UNIT; Start 09/10/18 at 09:00 Vitamin B Complex/ Vitamin C (Berocca) 1 cap DAILY PO Last administered on 08:39; Admin Dose 1 CAP; Start 09/10/18 at 09:00 Pantoprazole (Protonix Tab) 40 mg DAILY@06 PO Last administered on 09/15/18 05:54; Admin Dose 40 MG; Start 09/10/18 at 06:00 Acetaminophen (Tylenol Tab) 650 mg Q4H PRN PO ELEVATED TEMPERATURE & pain; Start 09/09/18 at 23:00 Clonidine (Catapres) 0.1 mg Q4H PRN NGT ELEVATED BLOOD PRESSURE; Start 09/09/18 at 23:00 Albuterol/ Ipratropium (Duoneb) 3 ml Q6H RESP THERAPY HHN Last administered on 09/14/18at 01:38; Admin Dose 3 ML; Start 09/10/18 at 02:00 Zolpidem Tartrate (Ambien) 5 mg HS PRN PO INSOMNIA; Start 09/09/18 at 23:00 Lorazepam (Ativan) 1 mg Q6H PRN PO ANXIETY Last administered on 09/13/18at 12:53; Admin Dose 1 MG; Start 09/09/18 at 23:00 Ondansetron HCl (Zofran Inj) 4 mg Q6H PRN IV NAUSEA AND/OR VOMITING; Start 09/09/18 at 23:00 Epoetin Jose Guadalupe (Epogen (Esrd)) 6,000 units MoWeFr@17 SC ; Start 09/13/18 at 17:00 Lorazepam (Ativan) 1 mg Q8H PRN IV ANXIETY; Start 09/13/18 at 17:00 Morphine Sulfate (morphine) 3 mg Q4H PRN PO SEVERE PAIN LEVEL 7-10; Start 09/13/18 at 23:00 Heparin Sodium (Porcine) (Heparin (1000 Units/ml)) 4,000 unit AFTER DIALYSIS CATHETER ; Start 09/14/18 at 18:00 Risperidone (Risperdal) 2 mg BID PO Last administered on 09/15/18at 08:39; Admin Dose 2 MG; Start 09/14/18 at 21:00 Divalproex Sodium (Depakote Sprinkle) 125 mg BID PO Last administered on 09/15/18at 08:39; Admin Dose 125 MG; Start 09/14/18 at 21:00 MEMO RODRIGUEZ MD Sep 15, 2018 16:50
[2018-09-15] MEDS: EPOETIN 3000 UNITS/1 ML INJ (ESRD) SC SCH (17:00)
[2018-09-16 02:00] VITALS: BP 102/50; PULSE 68; RESP 18
[2018-09-16] MEDS: ALBUTEROL/IPRATROPIUM (NEB) 3 ML AMP HHN SCH ×4 (02:20→19:36)
[2018-09-16] MEDS: PANTOPRAZOLE (EC) 40 MG TAB PO SCH (06:36)
[2018-09-16 07:18] VITALS: BP 122/65; PULSE 73; RESP 18
[2018-09-16] MEDS: CALCIUM ACETATE 667 MG CAP PO SCH ×3 (08:25→20:45)
[2018-09-16] MEDS: DIVALPROEX SPRINKLE 125 MG CAP PO SCH ×2 (08:25→20:45)
[2018-09-16] MEDS: DOCUSATE SODIUM 100 MG CAP PO SCH ×3 (08:26→20:44)
[2018-09-16] MEDS: RISPERIDONE 1 MG TAB PO SCH ×2 (08:26→20:45)
[2018-09-16] MEDS: VITAMIN B COMPLEX/VIT C CAP PO SCH (08:26)
[2018-09-16] MEDS: HEPARIN 5,000 UNIT/1 ML VIAL SC SCH ×2 (08:28→20:49)
[2018-09-16 13:43] VITALS: BP 91/64; PULSE 74; RESP 18
--- NOTE | 2018-09-16 15:55 | PN ---
Date/Time of Note Date/Time of Note DATE: 09/16/18 TIME: 15:54 Assessment/Plan VTE Prophylaxis Risk score (from Nsg)>0 risk: 5 SCD applied (from Ns): No SCD contraindicated: low risk/ambulating Pharmacological prophylaxis: NA/contraindicated Pharm contraindication: low risk/ambulating Lines/Catheters IV Catheter Type (from Nrs): Dialysis catheter Urinary Cath still in place: No Assessment/Plan Hospital Course 1. ESRD on HD. pt had been missing HD session due to absence of transportation 2. Anemia 3. Hx of schizophrenia. 4. Hx of GI bleed 5. Overweight 6. Numerous Decubi and lacerations. 7. Hypertension 8. Hx of fibula fracture Assessment/Plan - continue HD ,next HD [facility] MWF -psychiatric care, was seen BY clinical psychology teacher, will revise meds, added Depakote and Risperdal adjusted -case management arranging for hemodialysis near patient [facility] - DVT prophylaxis Heparin - GI prophylaxis Protonix. -c/w Epogen, increase to 6000 after HD Result Diagram: 09/13/18 0551 09/16/18 0502 Results 24hrs Laboratory Tests Test 09/16/18 05:02 Sodium Level 139 Potassium Level 4.4 Chloride Level 104 Carbon Dioxide Level 27 Anion Gap 8 Blood Urea Nitrogen 48 H Creatinine 4.26 H Est Glomerular Filtrat Rate mL/min 17 L Glucose Level 80 Calcium Level 9.0 Subjective 24 Hr Interval Summary Free Text/Dictation She feels okay. No new events waiting for placement. Exam/Review of Systems Exam Vitals Vital Signs Date Temp Pulse Resp B/P (MAP) Pulse Ox O2 O2 Flow FiO2 Time Delivery Rate 09/16/18 98.3 74 18 91/64 (73) 95 Room Air 13:43 09/16/18 2.0 05:28 09/13/18 21 01:24 Intake and Output 09/15/18 09/15/18 09/16/18 1515:00 23:00 07:00 IntakeIntake Total 460 ml OutputOutput Total 2550 ml BalanceBalance -2090 ml Exam Awake alert oriented Permacath in place Results Results 24hrs Laboratory Tests Test 09/16/18 05:02 Sodium Level 139 Potassium Level 4.4 Chloride Level 104 Carbon Dioxide Level 27 Anion Gap 8 Blood Urea Nitrogen 48 H Creatinine 4.26 H Est Glomerular Filtrat Rate mL/min 17 L Glucose Level 80 Calcium Level 9.0 Medications Medication Current Medications Calcium Acetate (Phoslo) 667 mg TID PO Last administered on 09/16/18 12:33; Admin Dose 667 MG; Start 09/10/18 at 09:00 Docusate Sodium (Colace) 100 mg TID PO Last administered on 09/16/18 12:33; Admin Dose 100 MG; Start 09/10/18 at 09:00 Heparin Sodium (Porcine) (Heparin (5000 Units/1ml)) 5,000 unit BID SC Last administered on 09/14/18 20:38; Admin Dose 5,000 UNIT; Start 09/10/18 at 09:00 Vitamin B Complex/ Vitamin C (Berocca) 1 cap DAILY PO Last administered on 09/16/18 08:26; Admin Dose 1 CAP; Start 09/10/18 at 09:00 Pantoprazole (Protonix Tab) 40 mg DAILY@06 PO Last administered on 09/16/18 06:36; Admin Dose 40 MG; Start 09/10/18 at 06:00 Acetaminophen (Tylenol Tab) 650 mg Q4H PRN PO ELEVATED TEMPERATURE & pain; Start 09/09/18 at 23:00 Clonidine (Catapres) 0.1 mg Q4H PRN NGT ELEVATED BLOOD PRESSURE; Start 09/09/18 at 23:00 Albuterol/ Ipratropium (Duoneb) 3 ml Q6H RESP THERAPY HHN Last administered on 09/14/18 01:38; Admin Dose 3 ML; Start 09/10/18 at 02:00 Zolpidem Tartrate (Ambien) 5 mg HS PRN PO INSOMNIA; Start 09/09/18 at 23:00 Lorazepam (Ativan) 1 mg Q6H PRN PO ANXIETY Last administered on 09/13/18 12:53; Admin Dose 1 MG; Start 09/09/18 at 23:00 Ondansetron HCl (Zofran Inj) 4 mg Q6H PRN IV NAUSEA AND/OR VOMITING; Start 09/09/18 at 23:00 Epoetin Jose Guadalupe (Epogen (Esrd)) 6,000 units MoWeFr@17 SC ; Start 09/13/18 at 17:00 Lorazepam (Ativan) 1 mg Q8H PRN IV ANXIETY; Start 09/13/18 at 17:00 Morphine Sulfate (morphine) 3 mg Q4H PRN PO SEVERE PAIN LEVEL 7-10; Start 09/13/18 at 23:00 Heparin Sodium (Porcine) (Heparin (1000 Units/ml)) 4,000 unit AFTER DIALYSIS CATHETER Last administered on 09/15/18 21:55; Admin Dose 4,000 UNIT; Start 09/14/18 at 18:00 Risperidone (Risperdal) 2 mg BID PO Last administered on 09/16/18 08:26; Admin Dose 2 MG; Start 09/14/18 at 21:00 Divalproex Sodium (Depakote Sprinkle) 125 mg BID PO Last administered on 09/16/18 08:25; Admin Dose 125 MG; Start 09/14/18 at 21:00 MEMO RODRIGUEZ MD Sep 16, 2018 15:55
[2018-09-16] MEDS ORDERED: HEPARIN 1000 UNITS/ML 10 ML INJ CATHETER SCH (16:00)
[2018-09-16 19:32] VITALS: BP 106/59; PULSE 76; RESP 21
[2018-09-17] VITALS (17 sets, daily range): BP systolic 102–125; BP diastolic 57–71; PULSE 51–81; RESP 16–20
[2018-09-17] MEDS: ALBUTEROL/IPRATROPIUM (NEB) 3 ML AMP HHN SCH ×3 (01:39→14:00)
[2018-09-17] MEDS: PANTOPRAZOLE (EC) 40 MG TAB PO SCH (06:13)
[2018-09-17] MEDS: DIVALPROEX SPRINKLE 125 MG CAP PO SCH (08:37)
[2018-09-17] MEDS: HEPARIN 5,000 UNIT/1 ML VIAL SC SCH (08:37)
[2018-09-17] MEDS: RISPERIDONE 1 MG TAB PO SCH (08:37)
[2018-09-17] MEDS: CALCIUM ACETATE 667 MG CAP PO SCH ×2 (09:00→13:00)
--- NOTE | 2018-09-17 11:14 | PN ---
Date/Time of Note Date/Time of Note DATE: 09/17/18 TIME: 11:13 Assessment/Plan VTE Prophylaxis Risk score (from Ns)>0 risk: 2 SCD applied (from [facility] [place] No SCD contraindicated: other Pharmacological prophylaxis: heparin Lines/Catheters IV Catheter Type (from [facility]): [place] Urinary Cath still in place: No Assessment/Plan Hospital Course 1. ESRD on HD. pt had been missing HD session due to absence of transportation 2. Anemia 3. Hx of schizophrenia. 4. Hx of GI bleed 5. Overweight 6. Numerous Decubi and lacerations. 7. Hypertension 8. Hx of fibula fracture Assessment/Plan - continue HD, HDMWF -psychiatric care, was seen BY organizational psychologist, will revise meds, added Depakote and Risperdal adjusted -case management arranging for hemodialysis near patient [facility] - DVT prophylaxis Heparin - GI prophylaxis Protonix. -c/w Epogen 6000 after HD Result Diagram: 09/13/18 0551 09/16/18 0502 Subjective 24 Hr Interval Summary Respiratory: no complaints Cardiovascular: no complaints Exam/Review of Systems Exam Vitals Vital Signs Date Temp Pulse Resp B/P (MAP) Pulse Ox O2 O2 Flow FiO2 Time Delivery Rate 09/17/18 68 10:27 09/17/18 18 125/66 97 Nasal 2.0 09:57 (85) Cannula 09/17/18 97.8 07:20 09/17/18 21 01:39 Intake and Output 09/16/18 09/16/18 09/17/18 1515:00 23:00 07:00 IntakeIntake Total 500 ml 660 ml 690 ml OutputOutput Total 850 ml 1070 ml 1150 ml BalanceBalance -350 ml -410 ml -460 ml Exam right chest Permcath Constitutional: alert, oriented (x1) Eyes: nl conjunctiva Respiratory: clear to auscultation Cardiovascular: regular rate and rhythm Gastrointestinal: soft Medications Medication Current Medications Calcium Acetate (Phoslo) 667 mg TID PO Last administered on 09/16/18at 20:45; Admin Dose 667 MG; Start 09/10/18 at 09:00 Docusate Sodium (Colace) 100 mg TID PO Last administered on 09/16/18at 20:44; Admin Dose 100 MG; Start 09/10/18 at 09:00 Heparin Sodium (Porcine) (Heparin (5000 Units/1ml)) 5,000 unit BID SC Last administered on 09/17/18at 08:37; Admin Dose 5,000 UNIT; Start 09/10/18 at 09:00 Vitamin B Complex/ Vitamin C (Berocca) 1 cap DAILY PO Last administered on 09/16/18 08:26; Admin Dose 1 CAP; Start 09/10/18 at 09:00 Pantoprazole (Protonix Tab) 40 mg DAILY@06 PO Last administered on 09/17/18at 06:13; Admin Dose 40 MG; Start 09/10/18 at 06:00 Acetaminophen (Tylenol Tab) 650 mg Q4H PRN PO ELEVATED TEMPERATURE & pain; Start 09/09/18 at 23:00 Clonidine (Catapres) 0.1 mg Q4H PRN NGT ELEVATED BLOOD PRESSURE; Start 09/09/18 at 23:00 Albuterol/ Ipratropium (Duoneb) 3 ml Q6H RESP THERAPY HHN Last administered on 09/17/18at 01:39; Admin Dose 3 ML; Start 09/10/18 at 02:00 Zolpidem Tartrate (Ambien) 5 mg HS PRN PO INSOMNIA; Start 09/09/18 at 23:00 Lorazepam (Ativan) 1 mg Q6H PRN PO ANXIETY Last administered on 09/13/18at 12:53; Admin Dose 1 MG; Start 09/09/18 at 23:00 Ondansetron HCl (Zofran Inj) 4 mg Q6H PRN IV NAUSEA AND/OR VOMITING; Start 09/09/18 at 23:00 Epoetin Jose Guadalupe (Epogen (Esrd)) 6,000 units MoWeFr@17 SC ; Start 09/13/18 at 17:00 Lorazepam (Ativan) 1 mg Q8H PRN IV ANXIETY; Start 09/13/18 at 17:00 Morphine Sulfate (morphine) 3 mg Q4H PRN PO SEVERE PAIN LEVEL 7-10; Start 09/13/18 at 23:00 Heparin Sodium (Porcine) (Heparin (1000 Units/ml)) 4,000 unit AFTER DIALYSIS CATHETER Last administered on 09/15/18at 21:55; Admin Dose 4,000 UNIT; Start 09/14/18 at 18:00 Risperidone (Risperdal) 2 mg BID PO Last administered on 09/17/18at 08:37; Admin Dose 2 MG; Start 09/14/18 at 21:00 Divalproex Sodium (Depakote Sprinkle) 125 mg BID PO Last administered on 09/17/18at 08:37; Admin Dose 125 MG; Start 09/14/18 at 21:00 Heparin Sodium (Porcine) (Heparin (1000 Units/ml)) 4,000 unit AFTER DIALYSIS CATHETER ; Start 09/16/18 at 16:00 CECILIA TRUJILLO Sep 17, 2018 11:14
[2018-09-17] MEDS: DOCUSATE SODIUM 100 MG CAP PO SCH ×2 (13:00→13:28)
[2018-09-17] MEDS: VITAMIN B COMPLEX/VIT C CAP PO SCH (13:28)
[2018-09-17] MEDS: EPOETIN 3000 UNITS/1 ML INJ (ESRD) SC SCH (13:29)
--- NOTE | 2018-09-18 15:44 | DS ---
Date/Time of Note Date/Time of Note DATE: 09/18/18 TIME: 15:44 Discharge Summary Admission/Discharge Info Admit Date/Time Sep 09, 2018 at 21:12 Discharge Date/Time Sep 17, 2018 at 19:19 Discharge Diagnosis ESRD Patient Condition: Stable Consults psych. YANICK Triana Procedures none Hospital Course This 62 yo male, was transferred from [facility] on 09/09/2018 per insurance reasons. Lately he had been having missed HD sessions. He has history of ESRD, pneumonia, septicemia, anemia, hx of schizophrenia, CHF, obesity, hypertension, e-coli sepsis. Pt HD place is not close to his intermediate. He had been missing HD and got admitted to different hospitals. 1. ESRD on HD. pt had been missing HD session due to absence of transportation 2. Anemia 3. Hx of schizophrenia. 4. Hx of GI bleed 5. Overweight 6. Numerous Decubi and lacerations. 7. Hypertension 8. Hx of fibula fracture During hospitalization pt was continued with HD, MWF. During his initial stay nurses reported pt speaking to himself or somebody who is not present in room. psychiatric consult was called, [place], psych. DIRECTOR STRATEGY saw the patient, evaluated him. She added Depakote and Risperdal. Case management arranging for hemodialysis near patient intermediate, they found different facility close to his HD center. During hospitalization he was on DVT prophylaxis with Heparin, GI prophylaxis was with Protonix. Pt was c/w Epogen 6000 u after each HD to decrease his anemia. Home Meds No Active Prescriptions or Reported Meds Primary Care Provider Not On Staff Doctor Time spent on discharge: < 30 minutes CECILIA TRUJILLO Sep 18, 2018 15:44
== END 2018-09-17 19:19 | DRG 682 ==
LOC: TEL 21:12 → 2NE 09-10 18:57 → 5EC 09-12 01:33
PROVIDERS: ADMIT Internal Medicine Nephrology; ATTEND Internal Medicine Nephrology
PROC: 5A1D70Z Performance of Urinary Filtration, Intermittent, Less than 6 Hours Per Day (ICD-10-PCS; principal; 2018-09-10)
DX: I12.0 Hypertensive chronic kidney disease with stage 5 chronic kidney disease or end stage renal disease (principal); N18.6 End stage renal disease; F17.200 Nicotine dependence, unspecified, uncomplicated; D63.1 Anemia in chronic kidney disease; F20.9 Schizophrenia, unspecified; E66.3 Overweight; Z68.28 Body mass index [BMI] 28.0-28.9, adult
CPT/HCPCS: 71045; 80048; 82652; 85025; 86704; 86706; 86709; 86803; 87081; 87340; 90935; 94640; 94664; J0886; J1644; J2060; Q4081